=== PATIENT | female | born 1990 ===

== ENCOUNTER 2024-09-30 09:45 | Day surgery (SDC) | payer OTHER ==
[2024-09-27 10:42] VITALS: BP 120/80
[~2024-09-30] VITALS: Ht 160 cm; Wt 88.0 kg
[2024-09-30] MEDS ORDERED: TRAM1TAB98 PO (12:46)
[2024-09-30] MEDS ORDERED: CEFAZOLIN SODIUM 1,000 MG VIAL IV ONE (13:15)
[2024-09-30] MEDS ORDERED: HEPARIN SODIUM,PORCINE 5,000 UNITS/ML VIAL IJ ONE (13:15)
[2024-09-30] MEDS ORDERED: BUPIVACAINE HCL 30 ML VIAL IJ ONE (13:15)
[2024-09-30] MEDS ORDERED: LIDOCAINE HCL 1%/EPINEPHRINE 20ML VIAL IJ ONE (13:15)
== END 2024-09-30 15:55 | disposition home or self-care (01) ==
LOC: CIR.AMB 09:45
PROVIDERS: ATTEND Surgery
DX: C50.011 Malignant neoplasm of nipple and areola, right female breast (principal)
CPT/HCPCS: 36561; C1751